=== PATIENT | female | born 1975 | race Caucasian/White ===

== ENCOUNTER 2018-12-28 11:18 | Emergency (ER) | payer OTHER ==
[2018-12-28 11:29] VITALS: BP 118/71; PULSE 77; TEMP 97.9; BMI 45.3
[2018-12-28] MEDS ORDERED: SULFAMETHOXAZOLE/TRIMETHOPRIM 800MG/160MG D.S. TABLET PO ONE (11:56)
--- NOTE | 2018-12-28 11:57 | PDOC ---
History of Present Illness - General Chief Complaint: Abscess Boil Stated Complaint: CYST IN BUTTOCKS/back pain Time Seen by Provider: 12/28/18 11:42 History Source: Patient Exam Limitations: No Limitations - History of Present Illness Initial Comments: 12/28/18 12:16 States has suffered from frequent and had pilonidal cyst excision last fall but states had onset of tenderness and painful lesion to her buttock not in the pilonidal area. States started 2 days ago has been soaking and squeezed but has not progressed to an extensive abscess at this stage. Denies fever but has not felt well. Occurred: reports: yesterday Severity: reports: mild Pain Location: reports: back (buttock) Associated Symptoms (Fall): denies symptoms Past History - Travel Traveled outside of the country in the last 30 days: No Close contact w/someone who was outside of country & ill: No - Past Medical History Allergies/Adverse Reactions: Allergies Allergy/AdvReac Type Severity Reaction Status Date / Time nuts Allergy Uncoded 12/28/18 11:29 Home Medications: Ambulatory Orders Citalopram Hydrobromide [Celexa -] 20 mg PO DAILY 12/28/18 Clonazepam [Klonopin] 2 mg PO BID 12/28/18 Dabigatran Etexilate Mesylate [Pradaxa -] 150 mg PO BID 12/28/18 Quetiapine Fumarate [Seroquel] 100 mg PO HS 12/28/18 Sulfamethoxazole/Trimethoprim [Bactrim *Ds*] 1 each PO BID #14 tablet 12/28/18 COPD: No DVT: Yes Other medical history: hemorroids - Suicide/Smoking/Psychosocial Hx Smoking History: Current every day smoker Number of Cigarettes Smoked Daily: 10 Information on smoking cessation initiated: No Hx Alcohol Use: No Drug/Substance Use Hx: No Review of Systems - Review of Systems Able to Perform ROS?: Yes Is the patient limited Tamazight proficient: Yes Constitutional: Yes: Symptoms Reported, See HPI, Malaise. No: Fever HEENTM: No: Symptoms Reported Respiratory: No: Symptoms reported Integumentary: Yes: Symptoms Reported, See HPI, Lesions (small swelling and pain to inner buttock ) All Other Systems: Reviewed and Negative *Physical Exam - Vital Signs Last Vital Signs Temp Pulse Resp BP Pulse Ox 97.9 F 77 19 118/71 100 12/28/18 11:24 12/28/18 11:24 12/28/18 11:24 12/28/18 11:24 12/28/18 11:24 - Physical Exam General Appearance: Yes: Nourished, Appropriately Dressed HEENT: positive: TANJA, Normal ENT Inspection, Normal Voice, TMs Normal, Pharynx Normal Neck: positive: Supple. negative: Tender Respiratory/Chest: positive: Lungs Clear Extremity: positive: Normal Capillary Refill, Normal Inspection Integumentary: positive: Normal Color, Other (patient with approximately 1 cm induration to the inner aspect of right butt cheek, non-pointing and nondraining lesion. Consistent with appearance of a probable folliculitis. Cyst or abscess noted.) Neurologic: positive: it project lead II-XII NML intact, Fully Oriented, Alert, Normal Mood/ Affect Progress Note - Progress Note Progress Note: Folliculitis, small and non-pointing. We will treat with Bactrim and have patient hot soak *DC/Admit/Observation/Transfer Diagnosis at time of Disposition: Folliculitis - Discharge Dispostion Disposition: HOME Condition at time of disposition: Stable Decision to Admit order: No - Referrals Referrals: Ericka Tillman [Primary Care Provider] - - Patient Instructions Printed Discharge Instructions: DI for Folliculitis Additional Instructions: Rest, keep area elevated. Avoid strenuous activity or exercise until wound is healed Use hot soaks to area to bring more blood to the surface and encourage drainage Allow water from shower to wash area thoroughly for 2-3 minutes, and pat dry upon exit of shower and replace dressing. Change his dressing daily until the wound is completely healed. May use Tylenol or Motrin for mild pain relief Continue all medications as prescribed Followup with private physician in 2-3 days for wound check Return to emergency Department for worsening swelling, pain, redness, fevers as needed - Post Discharge Activity
[2018-12-28] MEDS ORDERED: SULFAMETHOXAZOLE/TRIMETHOPRIM 800MG/160MG D.S. TABLET ONE (11:59)
== END 2018-12-28 12:21 | disposition home or self-care (01) ==
LOC: JERFT 11:18
DX: L73.9 Follicular disorder, unspecified (principal); Z86.718 Personal history of other venous thrombosis and embolism; F17.210 Nicotine dependence, cigarettes, uncomplicated
CPT/HCPCS: 99281-25

== ENCOUNTER 2019-06-02 00:37 | Emergency (ER) | payer OTHER ==
--- NOTE | 2019-06-02 00:48 | PDOC ---
Attending Attestation - Resident Resident Name: More Ni - ED Attending Attestation I have performed the following: I have examined & evaluated the patient, The case was reviewed & discussed with the resident, I agree w/resident's findings & plan
--- NOTE | 2019-06-02 00:50 | PDOC ---
History of Present Illness - General Chief Complaint: Shortness of Breath Stated Complaint: S.O.B. Time Seen by Provider: 06/02/19 00:47 - History of Present Illness Initial Comments: Ericka Miller is a 43yo with a PMH of HSV, HPV, panic disorder, depression, asthma , chronic sinus thrombosis who presents reporting shortness of breath at home. She states that she was seen at urgent care and had some improvement from an albuterol treatment there "either yesterday or today". She also used an albuterol MDI at home but is unable to state whether it helped. She says that she used an old breathing treatment at home as well though she was told previously not to take it. She denies any fevers or chills, chest pain, congestion, or n/v but does endorse recent cough over the past month, headaches and "butterfly lights" floating in her eyes, and she is concerned about a recurrence of her venous thrombosis. She denies any additional neurological symptoms including numbness, weakness, loss of vision, difficulty walking, or facial droop. Past History - Past Medical History Allergies/Adverse Reactions: Allergies Allergy/AdvReac Type Severity Reaction Status Date / Time nuts Allergy Uncoded 06/02/19 00:43 Home Medications: Ambulatory Orders Citalopram Hydrobromide [Celexa -] 20 mg PO DAILY 12/28/18 Clonazepam [Klonopin] 2 mg PO BID 12/28/18 Dabigatran Etexilate Mesylate [Pradaxa -] 150 mg PO BID 12/28/18 Quetiapine Fumarate [Seroquel] 100 mg PO HS 12/28/18 Sulfamethoxazole/Trimethoprim [Bactrim *Ds*] 1 each PO BID #14 tablet 12/28/18 COPD: No DVT: Yes - Psycho Social/Smoking Cessation Hx Smoking History: Current every day smoker Number of Cigarettes Smoked Daily: 10 Hx Alcohol Use: No Drug/Substance Use Hx: No Review of Systems - Review of Systems Comments:: General: No fevers, no chills, no weight or appetite change, no malaise HEENT: No changes in vision, no changes in hearing, no congestion, no sore throat CV: No chest pain, no palpitations, no LE edema Pulm: See HPI GI: No nausea or vomiting, no change in bowel habits, no melena : No frequency, no urgency, no dysuria Musc: No back pain, no joint swelling, no recent injury Skin: No rash, no lesions, no erythema Endo: No excessive thirst, no heat/cold intolerance Heme: No unusual bruising or bleeding, no swollen glands Neuro: No syncope, no numbness/tingling, no focal weakness Vasc: No claudication Psych: No recent change in mood, no SI or HI *Physical Exam - Physical Exam Comments: General: In no acute distress HEENT: Atraumatic, PERRL, EOMI, MMM, voice normal, normal neck ROM, no LAD Cards: RRR, no murmur appreciated Pulm: Comfortable on room air, clear to auscultation bilaterally, no wheezing or crackles Abd: Soft, nontender, nondistended Ext: Atraumatic. No LE edema. Moves all extremities Skin: Normal color, no rashes or lesions Neuro: A&Ox3, CN grossly intact, normal speech, motor/sensory grossly intact and symmetric, no focal deficits Psych: Mood appropriate to situation Medical Decision Making - Medical Decision Making 06/02/19 00:49 Ericka Miller is a 43yo with a PMH of HSV, HPV, panic disorder, depression, asthma , chronic sinus thrombosis who presents reporting shortness of breath at home. - Sats 100% on RA. Lung exam without wheezing or crackles, good breath sounds bilaterally. No report of fever. No indication of URI, asthma, pneumonia, or other acute pulmonary disease - CXR ordered due to recent cough but otherwise benign exam - Will most likely d/c home once xray completed 06/02/19 01:16 - Patient became acutely upset, stated that she was very angry and was leaving. Ms Miller was asked why she was upset but she declined to respond. Ms Miller would not state what she was upset about nor what had happened to make her angry. - The patient was observed ambulating through the ED without difficulty. She was speaking rapidly without any appreciable shortness of breath. Discussed with Dr Harry Ni PGY2 Discharge - Discharge Information Problems reviewed: Yes Clinical Impression/Diagnosis: Shortness of breath Disposition: ELOPED - Follow up/Referral - Patient Discharge Instructions - Post Discharge Activity
[2019-06-02 01:05] VITALS: BP 99/55; PULSE 80; TEMP 98.3; BMI 41.4
== END 2019-06-02 01:00 | disposition left against medical advice (07) ==
LOC: JER 00:37
DX: R06.02 Shortness of breath (principal); J45.909 Unspecified asthma, uncomplicated; F32.9 Major depressive disorder, single episode, unspecified; F41.0 Panic disorder [episodic paroxysmal anxiety]; Z86.19 Personal history of other infectious and parasitic diseases; Z86.718 Personal history of other venous thrombosis and embolism; Z79.02 Long term (current) use of antithrombotics/antiplatelets
CPT/HCPCS: 99281-25